=== PATIENT | male | born 1970 | race Hispanic/Latino ===

== ENCOUNTER 2023-12-08 07:48 | Emergency (ER) | payer BC ==
[~2023-12-08] VITALS: Ht 182.9 cm; Wt 113.4 kg
[2023-12-08 08:23] LABS: BASOPHILS # (AUTO) 0.05 K/uL (0.00-0.20); BASOPHILS % (AUTO) 0.6 % (0.0-5.0); EOSINOPHILS # (AUTO) 0.08 K/uL (0.00-0.70); EOSINOPHILS % (AUTO) 0.9 % (0.0-8.0); HEMATOCRIT 45.1 % (42-54); IMMATURE GRANULOCYTE ABSOLUTE 0.03 K/uL (0-1); LYMPHOCYTES # (AUTO) 1.2 K/uL (1.0-4.8); LYMPHOCYTES % (AUTO) 13.1 % (21.0-51.0); MEAN CORPUSCULAR HEMOGLOBIN 27.8 pg (27.0-33.0); MEAN CORPUSCULAR HGB CONC 33.9 g/dL (32.0-36.0); MONOCYTES # (AUTO) 0.6 K/uL (0.1-1.0); MONOCYTES % (AUTO) 7.1 % (3.0-13.0); NEUTROPHILS # (AUTO) 7.1 K/uL (1.8-7.7); PLATELET COUNT (AUTO) 262 K/uL (130-400); RED CELL DISTRIBUTION WIDTH 13.3 % (11.0-15.5); WHITE BLOOD COUNT (AUTO) 9.1 K/uL (4.8-10.8)
[2023-12-08 08:31] LABS: INR 1.02 (0.85-1.15)
[2023-12-08 08:43] LABS: CREATININE 0.8 mg/dL (0.5-1.3); POTASSIUM 3.8 mmol/L (3.5-5.1)
[2023-12-08 08:55] LABS: ALBUMIN 4.2 g/dL (3.5-5.0); BILIRUBIN,TOTAL 0.5 mg/dL (0.2-1.0); MAGNESIUM 2.1 mg/dL (1.80-2.40); TOTAL PROTEIN, SERUM 8.6 g/dL (6.0-8.3)
[2023-12-08 09:17] LABS: APPEARANCE,URINE CLEAR (CLEAR); BILIRUBIN,URINE NEGATIVE (NEGATIVE); COLOR,URINE LIGHT-YELLOW (YELLOW); GLUCOSE, URINE (UA) NEGATIVE (NEGATIVE); KETONES,URINE NEGATIVE (NEGATIVE); LEUKOCYTE ESTERASE ,URINE NEGATIVE Leu/uL (NEGATIVE); NITRATE,URINE NEGATIVE (NEGATIVE); OCCULT BLOOD,URINE NEGATIVE (NEGATIVE); PROTEIN,URINE NEGATIVE (NEGATIVE); UROBILINOGEN,URINE 0.2 mg/dL (0.2-1.0)
[2023-12-08 09:20] LABS: ADD UA MICROSCOPIC NO
[2023-12-08] MEDS: ACETAMINOPHEN 500 MG TABLET PO ONE (10:51)
[2023-12-08] MEDS ORDERED: IOHEXOL-350 75 ML VIAL IV ONE (12:03)
[2023-12-08] MEDS ORDERED: NAPR-1180 PO (14:39)
[2023-12-08] MEDS ORDERED: CYCL-309 PO (14:39)
[2023-12-08] MEDS: NAPROXEN 500 MG TABLET PO ONE (14:52)
[2023-12-08] MEDS: ORPHENADRINE 60MG/2ML IVP ONE (14:52)
[2023-12-08 15:23] VITALS: BP 135/88; PULSE 68; RESP 19; O2SAT 95
== END 2023-12-08 15:27 | disposition home or self-care (01) ==
LOC: EDH 07:48
DX: M54.12 Radiculopathy, cervical region (principal); M06.9 Rheumatoid arthritis, unspecified; I10 Essential (primary) hypertension; Z90.49 Acquired absence of other specified parts of digestive tract
CPT/HCPCS: 99285; 70496; 96374; 71045; 83735; 84484 ×3; 80053; 83880; 83690; 85025; 85610; 81003; 36415; 70498; 93005; Q9967; J2360

== ENCOUNTER 2024-02-08 13:26 | Emergency (ER) | payer BC, OTHER ==
[~2024-02-08] VITALS: Ht 182.9 cm; Wt 111.1 kg
[~2024-02-08 13:26] MED LIST: CYCL-309 PO; NAPR-1180 PO
[2024-02-08] MEDS: HYDROcodone/APAP 5/325 1 TAB TABLET PO ONE (15:16)
[2024-02-08] MEDS ORDERED: IBUP-2077 PO (16:07)
[2024-02-08 16:50] VITALS: BP 169/90; PULSE 93; RESP 20; TEMP 98.8; O2SAT 97
== END 2024-02-08 17:11 | disposition home or self-care (01) ==
LOC: EDH 13:26
DX: S63.591A Other specified sprain of right wrist, initial encounter (principal); S40.011A Contusion of right shoulder, initial encounter; S40.021A Contusion of right upper arm, initial encounter; I10 Essential (primary) hypertension; Z79.899 Other long term (current) drug therapy; Z90.49 Acquired absence of other specified parts of digestive tract; W13.2XXA Fall from, out of or through roof, initial encounter; Y93.89 Activity, other specified; Y92.098 Other place in other non-institutional residence as the place of occurrence of the external cause; Y99.8 Other external cause status
CPT/HCPCS: 29125; 73030; 73080; 73110